=== PATIENT | male | born 1960 | race Caucasian/White ===

== ENCOUNTER 2021-05-06 13:55 | Emergency (ER) | payer BC, SELFPAY ==
--- NOTE | 2021-05-06 16:22 | EKG12_ITS ---
Test Reason : SOB Blood Pressure : / mmHG Vent. Rate : 086 BPM Atrial Rate : 086 BPM P-R Int : 180 ms QRS Dur : 094 ms QT Int : 380 ms P-R-T Axes : 044 030 047 degrees QTc Int : 454 ms Normal sinus rhythm Normal ECG Confirmed by HEATHER STEWART, GELY ([id number]), mapping editor FARZANA GAXIOLA ([id number]) on 05/08/2021 10:16:01 AM Referred By: WU Confirmed By:GELY ROMERO MD
--- NOTE | 2021-05-06 16:25 | RAD_ITS ---
INDICATION: cough EXAMINATION/TECHNIQUE: X-RAY - UNKNOWN XR Chest 1 View COMPARISON: None. FINDINGS: The lungs are clear. The cardiomediastinal silhouette is unremarkable. No pleural effusion or pneumothorax. No acute osseous abnormalities. RAD/Chest 1 View (Portable) IMPRESSION: No acute radiographic abnormalities. Electronically Signed: Son Coronel MD at 16:47 EST ,
--- NOTE | 2021-05-06 18:58 | EDS_ITS ---
DATE OF SERVICE 05/06/21 CHIEF COMPLAINT: Cough and weakness. HISTORY OF PRESENT ILLNESS: This is a 60-year-old male who presents with cough, headache, weakness and kind of feeling out of it today. He was diagnosed with COVID 4 days ago, and this is day #5 of symptoms. He has a cough, but he has no shortness of breath. No sputum production. He has no chest pain. He has no recent fevers or chills. He does complain of a gradual onset of headache. PHYSICAL EXAMINATION: VITAL SIGNS: Normal vitals, pulse ox 98% on room air. NECK: No meningismus with negative jolt. LUNGS: Clear. HEART: Regular. ABDOMEN: Soft and nontender. EXTREMITIES: No extremity edema. Normal color. Normal exam otherwise. DIAGNOSTIC DATA: Chest x-ray is negative for any pneumonia. Blood work is normal. EMERGENCY DEPARTMENT COURSE AND MEDICAL DECISION MAKING: He appears well. He received IV fluids and Toradol, and he improved. IMPRESSION: COVID. Cough. Weakness. DISPOSITION/PLAN: At this time, there is no evidence of pneumonia, hypoxia or any other reason for admission. He does meet criteria for monoclonal antibodies and he is on the list at [facility] to possibly receive them. At this time, he has no chest pain, shortness of breath or any other reason to suspect thromboembolic disease. As of today's date, there is no recommendation for thromboembolic prophylaxis in COVID patients. The patient will be discharged in stable condition in care of . If anything changes, the patient is to return.
[2021-05-06 20:55] LABS: Absolute Lymphocyte Count 0.29 X10^3/uL (0.83-4.51); Absolute Neutrophil Count 5.1 X10^3/uL (2.0-7.7); Differential Comment SCANNED; Differential Indicated SCAN CRITERIA MET; Hematocrit 43.2 % (40-54); Hemoglobin 14.8 g/dL (13.0-16.5); Lymphocyte # 0.29 X10^3/ul (0.83-4.51); Lymphocyte % 5.1 % (19-41); Mean Corp Hgb Conc 34.3 g/dL (32-36); Mean Corpuscular Hgb 33.5 pg (27.0-32.0); Mean Corpuscular Volume 97.7 fL (80-94); Mean Platelet Vol. 9.6 fl (6.2-12.0); Monocyte# 0.33 X10^3/uL; Monocyte% 5.8 % (0-10); NRBC Flagged by Analyzer 0 % (0-5); Neutrophil # 5.05 X10^3/uL (2.7-7.7); Neutrophil % 88.7 % (47-70); POSITIVE DIFFERENTIAL YES; Platelet Count 231 K/mm3 (150-450); RBC Distribution Width CV 11.8 % (11.6-14.6); RBC Distribution Width SD 42.9 fl (35.1-43.9); Red Blood Count 4.42 M/mm3 (4.6-6.2); White Blood Count 5.7 K/mm3 (4.4-11.0)
[2021-05-07 02:22] LABS: ALB/GLOB Ratio 0.8 RATIO (0.9-2.4); AST(SGOT) 42 U/L (15-37); Alanine Aminotransfer ALT/SGPT 45 U/L (16-61); Albumin, Serum 3.6 g/dL (3.2-5.0); Alkaline Phosphatase 53 U/L (45-117); Anion Gap 11 (5-15); BUN 9 mg/dL (7-18); BUN/Creat Ratio 13.8 RATIO (10-20); Calcium,Total 8.4 mg/dL (8.5-10.1); Chloride 103 mmol/L (98-107); Creatinine, Serum 0.65 mg/dL (0.70-1.30); EST Glomerular Filtration Rate 133 mL/min (>60); Est Glom Filt Rate - Afr Amer 161 mL/min (>60); Globulin 4.3 g/dL (2.2-4.2); Glucose 118 mg/dL (74-106); Potassium 4.4 mmol/L (3.5-5.1); Protein, Total 7.9 g/dL (6.4-8.2); Sodium Level 137 mmol/L (136-145); Troponin-I HS 6 pg/mL (3.0-78.0)
== END 2021-05-06 19:09 | disposition home or self-care (01) ==
LOC: ED 19:06
PROVIDERS: Emergency Provider Emergency Medicine; PCP Physician Assistant; Visit Provider Emergency Medicine
DX: U07.1 COVID-19 (principal)
CPT/HCPCS: 71045; 80053; 84484; 85025; 93005; 96361; 96374; 99284